=== PATIENT | female | born 2000 | race Caucasian/White ===

== ENCOUNTER 2025-04-22 03:08 | Emergency (ER) | payer BC, SELFPAY ==
[2025-04-22] VITALS (20 sets, daily range): BP systolic 111–130; BP diastolic 63–98; PULSE 59–95; RESP 9–22; TEMP 36.6; O2SAT 95–100
--- NOTE | ~2025-04-22 | US_ITS ---
EXAMINATION: US pelvic complete w TV INDICATION: Right lower quadrant pain Comparison:Ultrasound dated 11/20/2024 TECHNIQUE: Multiple transabdominal and endovaginal sonographic images of the pelvis performed. FINDINGS: The uterus measures 8.8 x 2.9 x 5.4 cm. The endometrial complex measures 4.5 mm. The right ovary measures 3.7 x 1.3 x 1.6 cm and the left ovary measures 4.7 x 2 x 2 cm. There are sm all follicles in each ovary. Normal doppler signal in both ovaries. There is no free fluid in the pelvis. There are no abnormal masses seen on either side. IMPRESSION: 1. Unremarkable pelvic ultrasound. Reviewed, dictated and finalized at location A.
--- NOTE | ~2025-04-22 | CT_ITS ---
EXAMINATION: CT abdomen pelvis w con DATE: 04/22/2025 06:43 INDICATION: Right lower quadrant pain TECHNIQUE: Computed tomography (CT) of the abdomen and pelvis was performed with 100 cc Omnipaque 350 intravenous contrast. The dose-length product was 1095.55 mGy-cm. Automated exposure control and ite rative reconstruction technique were employed. COMPARISON: Ultrasound dated 04/22/2025. FINDINGS: There is dependent atelectasis. Heart size normal. No significant pleural or pericardial ef fusion. There is a 3 mm distal right ureteral stone near the UVJ. Mild right hydronephrosis. There is delayed asymmetric right renal nephrogram. Nonobstructing left nephrolithiasis. No left ureteral sto ne or hydronephrosis. No abnormal pelvic masses or fluid collections. Normal appendix. IMPRESSION: 1. Distal right ureteral stone near the UPJ measuring 3 mm with mild hydronephrosis. 2: Nonobstructing left nephrolithiasis. Reviewed, dictated and finalized at location A. IMPRESSION: 1. Distal right ureteral stone near the UPJ measuring 3 mm with mild hydronephr osis. 2: Nonobstructing left nephrolithiasis.
--- OUTSIDE RECORDS SUMMARY | 2025-04-22 03:11 | XMS_ITS | Patient Health Record ---
Author Organization [facility] Address [address] [facility] [address] [place] [address] Care Team Providers Care Respiratory Therapy Technician Name Role Phone Simon OROZCO, Jesus Primary Care Provider UnavailDustin Schultz Unavailable [phone] Nilo Harding Unavailable [phone] Results Component Value Reference Range Notes Test Reviewed date:07/29/2024 11:18:57 AM Interpretation: Performing Lab: Notes/Report: Test urine NEG 0 - 0 UDT Reviewed date:07/29/2024 11:18:57 AM Interpretation: Performing Lab: Notes/Report: THC POS 0 - 50 ng/ml Cocaine N 0 - 300 ng/ml Amphetamine N 0 - 1000 ng/ml Buprenorphine (BUP) N 0 - 10 ng/ml Secobarbital (Bar) N 0 - 300 ng/ml Oxazepam (BZO) N 0 - 300 ng/ml 6-zvdefdqhpx-6,5-xppmudtf-1,3-diphenylpyrrolidine (GRACIE P) N 0 - 300 ng/ml Methamphetamine (MET) N 0 - 1000 ng/ml Methylenedioxymethamphetamine (MDMA) N 0 - 500 ng/ml Morphine (MOP 300/[id number]) N 0 - 300 ng/ml Methadone (MTD) N 0 - 300 ng/ml Phencyclidine (PCP) N 0 - 25 ng/ml Nortriptyline (TCA) N 0 - 1000 ng/ml Oxycodone N 0 - 300 ng/ml x N 0 - 300 ng/ml Reason For Referral No Information Medications Medication SIG (Take, Route, Frequency, Duration) Notes Start Date End Date Status traZODone HCl 50 MG 1 tablet at bedtime Oral Once a day; Duration: 30 days Active DULoxetine HCl 30 MG TAKE 1 CAPSULE BY MOUTH EVERY DAY; Duration: 90 Active Multivitamin Active ALESSIA 24 FE 1 MG-20 MCG (24)/75 MG (4) TABLET *Reorder from [employer] for eRx and Interaction Alerts* Active Trintellix 10 MG 1 tablet Orally Once a day; Duration: 30 days 07/26/2024 Active Trintellix 5 MG 1 tablet Orally Once a day; Duration: 7 days 07/26/2024 Active Social History Tobacco Use: Social History Observation Description Date Details (start date - stop date) Never Smoker NA - NA Sex Assigned At : Social History Observation Description Sex Assigned At Female Tobacco Control (Standard) Question Answer Notes Tobacco use: Nonsmoker AUDIT-C (Standard) Question Answer Notes Points 3 Interpretation Positive Did you have a drink contain ing alcohol in the past year? Yes How often did you have six o r more drinks on one occasion in the past year? Less than monthly (1 point) How many drinks did you have on a typical day when you were drinking in the past year? 3 or 4 drinks (1 point) How often did you have a dri nk containing alcohol in the past year? Monthly or less (1 point) Problems Problem Type SNOMED Code ICD Code Onset Dates Problem Status W/U Status Risk Notes Problem Insomnia disorder related to another mental disorder (98388166) Insomnia due to other mental disorder (F51.05) Active confirmed Problem Generalized anxiety disorder (52313372) Anxiety, generalized (F41.1) Active confirmed Problem Panic disorder (546052201) Panic disorder (F41.0) Active confirmed Problem Moderate recurrent major depression (54446234) Moderate recurrent major depression (F33.1) Active confirmed Problem Complex posttraumatic stress disorder (521422998) Complex posttraumatic stress disorder (F43.10) Active confirmed Vital Signs Height-cm 160.02 cm 07/26/2024 Weight-kg 93.08 kg 07/26/2024 Height 63 in 07/26/2024 Weight 205.2 lbs 07/26/2024 BMI 36.35 kg/m2 07/26/2024 Encounters [facility] [address] [address] 07/26/2024 Dustin Camara Anxiety, generalized F41.1 ; Fatigue, unspecified type R53.83 ; Complex posttraumatic stress disorder F43.10 ; Moderate recurrent major depression F33.1 ; Panic disorder F41.0 and Insomnia due to other mental disorder F51.05 [facility], [facility] [address] [place] [address] 09/06/2024 Dustin Camara [facility], [facility] [address] [place] [address] 09/09/2024 Dustin Camara [facility], [facility] [address] [place] [address] 09/10/2024 Dustin Camara [facility], [facility] [address] [place] [address] 06/14/2024 Nilo Harding [facility], [facility] [address] [place] [address] 08/26/2024 Dustin Camara Moderate recurrent major depression F33.1 [facility], [facility] [address] [place] [address] 08/26/2024 Dustin Camara Moderate recurrent major depression F33.1 [facility], [facility] [address] [place] [address] 08/26/2024 Dustin Camara [facility], [facility] [address] [place] [address] 08/29/2024 Dustin Camara Moderate recurrent major depression F33.1 [facility], [facility] [address] [place] [address] 09/01/2024 Dustin Camara [facility], [facility] [address] [place] [address] 09/06/2024 Dustin Camara Assessments Encounter Date Diagnosis (ICD Code) Assessment Notes Treatment Notes Treatment Clinical Notes Section Notes 07/26/2024 Fatigue, unspecified type (ICD-10 - R53.83) 1. Anxiety and Panic Disorder: - Continue trazodone for sleep as needed - Taper off duloxetine: decrease to 30 mg daily for two weeks, then discontinue - Initiate Trintellix: start at 5 mg daily for one week, then increase to 10 mg daily Plan: - Continue therapy with current counselor, including EMDR for complex PTSD 2. Depression: - Taper off duloxetine as mentioned above - Initiate Trintellix as mentioned above Plan: - Monitor response to Trintellix and adjust dosage as needed - Continue therapy with current counselor 3. Fatigue: Plan: - Order blood work: CBC, red blood count, hemoglobin, hematocrit, vitamin B12, folate, thyroid, lipid panel, iron, ferritin, electrolytes, and glucose - Monitor response to Trintellix and consider referral to sleep medicine if she experiences persistent fatigue 4. ARFID (Avoidant/Restr ictive Food Intake Disorder): Plan: - Continue exploring online resources and local counselors specializing in ARFID - Monitor nutritional status and consider referral to a logistics planning engineer if needed 5. Complex PTSD: Plan: - Continue EMDR therapy with current counselor - Monitor progress and adjust treatment plan as needed 6. Sleep disturbance: - Continue trazodone for sleep as needed Plan: - Monitor response to Trintellix and consider referral to sleep medicine if she continues to experience sleep disturbance 07/26/2024 Anxiety, generalized (ICD-10 - F41.1) 1. Anxiety and Panic Disorder: - Continue trazodone for sleep as needed - Taper off duloxetine: decrease to 30 mg daily for two weeks, then discontinue - Initiate Trintellix: start at 5 mg daily for one week, then increase to 10 mg daily Plan: - Continue therapy with current counselor, including EMDR for complex PTSD 2. Depression: - Taper off duloxetine as mentioned above - Initiate Trintellix as mentioned above Plan: - Monitor response to Trintellix and adjust dosage as needed - Continue therapy with current counselor 3. Fatigue: Plan: - Order blood work: CBC, red blood count, hemoglobin, hematocrit, vitamin B12, folate, thyroid, lipid panel, iron, ferritin, electrolytes, and glucose - Monitor response to Trintellix and consider referral to sleep medicine if she experiences persistent fatigue 4. ARFID (Avoidant/Restr ictive Food Intake Disorder): Plan: - Continue exploring online resources and local counselors specializing in ARFID - Monitor nutritional status and consider referral to a logistics planning engineer if needed 5. Complex PTSD: Plan: - Continue EMDR therapy with current counselor - Monitor progress and adjust treatment plan as needed 6. Sleep disturbance: - Continue trazodone for sleep as needed Plan: - Monitor response to Trintellix and consider referral to sleep medicine if she continues to experience sleep disturbance 08/26/2024 Moderate recurrent major depression (ICD-10 - F33.1) 08/26/2024 Moderate recurrent major depression (ICD-10 - F33.1) 08/29/2024 Moderate recurrent major depression (ICD-10 - F33.1) 07/26/2024 Complex posttraumatic stress disorder (ICD-10 - F43.10) counseling, just started EMDR 1. Anxiety and Panic Disorder: - Continue trazodone for sleep as needed - Taper off duloxetine: decrease to 30 mg daily for two weeks, then discontinue - Initiate Trintellix: start at 5 mg daily for one week, then increase to 10 mg daily Plan: - Continue therapy with current counselor, including EMDR for complex PTSD 2. Depression: - Taper off duloxetine as mentioned above - Initiate Trintellix as mentioned above Plan: - Monitor response to Trintellix and adjust dosage as needed - Continue therapy with current counselor 3. Fatigue: Plan: - Order blood work: CBC, red blood count, hemoglobin, hematocrit, vitamin B12, folate, thyroid, lipid panel, iron, ferritin, electrolytes, and glucose - Monitor response to Trintellix and consider referral to sleep medicine if she experiences persistent fatigue 4. ARFID (Avoidant/Restr ictive Food Intake Disorder): Plan: - Continue exploring online resources and local counselors specializing in ARFID - Monitor nutritional status and consider referral to a logistics planning engineer if needed 5. Complex PTSD: Plan: - Continue EMDR therapy with current counselor - Monitor progress and adjust treatment plan as needed 6. Sleep disturbance: - Continue trazodone for sleep as needed Plan: - Monitor response to Trintellix and consider referral to sleep medicine if she continues to experience sleep disturbance 07/26/2024 Moderate recurrent major depression (ICD-10 - F33.1) 1. Anxiety and Panic Disorder: - Continue trazodone for sleep as needed - Taper off duloxetine: decrease to 30 mg daily for two weeks, then discontinue - Initiate Trintellix: start at 5 mg daily for one week, then increase to 10 mg daily Plan: - Continue therapy with current counselor, including EMDR for complex PTSD 2. Depression: - Taper off duloxetine as mentioned above - Initiate Trintellix as mentioned above Plan: - Monitor response to Trintellix and adjust dosage as needed - Continue therapy with current counselor 3. Fatigue: Plan: - Order blood work: CBC, red blood count, hemoglobin, hematocrit, vitamin B12, folate, thyroid, lipid panel, iron, ferritin, electrolytes, and glucose - Monitor response to Trintellix and consider referral to sleep medicine if she experiences persistent fatigue 4. ARFID (Avoidant/Restr ictive Food Intake Disorder): Plan: - Continue exploring online resources and local counselors specializing in ARFID - Monitor nutritional status and consider referral to a logistics planning engineer if needed 5. Complex PTSD: Plan: - Continue EMDR therapy with current counselor - Monitor progress and adjust treatment plan as needed 6. Sleep disturbance: - Continue trazodone for sleep as needed Plan: - Monitor response to Trintellix and consider referral to sleep medicine if she continues to experience sleep disturbance 07/26/2024 Panic disorder (ICD-10 - F41.0) 1. Anxiety and Panic Disorder: - Continue trazodone for sleep as needed - Taper off duloxetine: decrease to 30 mg daily for two weeks, then discontinue - Initiate Trintellix: start at 5 mg daily for one week, then increase to 10 mg daily Plan: - Continue therapy with current counselor, including EMDR for complex PTSD 2. Depression: - Taper off duloxetine as mentioned above - Initiate Trintellix as mentioned above Plan: - Monitor response to Trintellix and adjust dosage as needed - Continue therapy with current counselor 3. Fatigue: Plan: - Order blood work: CBC, red blood count, hemoglobin, hematocrit, vitamin B12, folate, thyroid, lipid panel, iron, ferritin, electrolytes, and glucose - Monitor response to Trintellix and consider referral to sleep medicine if she experiences persistent fatigue 4. ARFID (Avoidant/Restr ictive Food Intake Disorder): Plan: - Continue exploring online resources and local counselors specializing in ARFID - Monitor nutritional status and consider referral to a logistics planning engineer if needed 5. Complex PTSD: Plan: - Continue EMDR therapy with current counselor - Monitor progress and adjust treatment plan as needed 6. Sleep disturbance: - Continue trazodone for sleep as needed Plan: - Monitor response to Trintellix and consider referral to sleep medicine if she continues to experience sleep disturbance 07/26/2024 Insomnia due to other mental disorder (ICD-10 - F51.05) 1. Anxiety and Panic Disorder: - Continue trazodone for sleep as needed - Taper off duloxetine: decrease to 30 mg daily for two weeks, then discontinue - Initiate Trintellix: start at 5 mg daily for one week, then increase to 10 mg daily Plan: - Continue therapy with current counselor, including EMDR for complex PTSD 2. Depression: - Taper off duloxetine as mentioned above - Initiate Trintellix as mentioned above Plan: - Monitor response to Trintellix and adjust dosage as needed - Continue therapy with current counselor 3. Fatigue: Plan: - Order blood work: CBC, red blood count, hemoglobin, hematocrit, vitamin B12, folate, thyroid, lipid panel, iron, ferritin, electrolytes, and glucose - Monitor response to Trintellix and consider referral to sleep medicine if she experiences persistent fatigue 4. ARFID (Avoidant/Restr ictive Food Intake Disorder): Plan: - Continue exploring online resources and local counselors specializing in ARFID - Monitor nutritional status and consider referral to a logistics planning engineer if needed 5. Complex PTSD: Plan: - Continue EMDR therapy with current counselor - Monitor progress and adjust treatment plan as needed 6. Sleep disturbance: - Continue trazodone for sleep as needed Plan: - Monitor response to Trintellix and consider referral to sleep medicine if she continues to experience sleep disturbance Plan Of Treatment Future Test Test Name Order Date IRON, TIBC AND FERRITIN PANEL (5616) TSH+FREE T4 (75300) 07/26/2024 LIPID PANEL (REFL) (92941) 07/26/2024 COMPREHENSIVE METABOLIC PANEL (23458) CBC (H/H, RBC, INDICES, WBC, PLT) (1759) 07/26/2024 HEMOGLOBIN A1c (496) 07/26/2024 VITAMIN B12/FOLATE, SERUM PANEL (7065) 1 09/25/2023 Insurance Providers Payer Name Payer Address Payer Phone Subscriber Number Group Number Insured Name Patient Relationship to Insured Coverage Start Date Coverage End Date [facility] [address] [place] [address] [id number] KALYN MANNING Self - patient is the insured Medical (General) History Medical History History ICD Code Past Psychiatric History: Anxiety Disord er abdominal aortic aneurysm: No atrial fibrillation: No chronic fatigue syndrome: No essential tremor: No hyperlipidemia: No hypertension: No Parkinson's disease: No restless leg syndrome: No stroke: No subdural hematoma: No type 1 diabetes mellitus: No type 2 diabetes mellitus: No vitamin B12 deficiency: No vitamin D deficiency: No
--- OUTSIDE RECORDS SUMMARY | 2025-04-22 03:11 | XMS_ITS | Clinical Summary ---
Author Organization [facility] Address [address] [address] Care Team Providers Care Sawmill Supervisor Name Role Phone Provider, Unknown Primary Care Provider Unavaila ble Allergies Active Allergy Reactions Criticality Noted Date Comments Clindamycin Anaphylaxis 06/22/2020 Medications SERTRALINE HCL PO Take by mouth. Activ e traZODone (DESYREL) 100 MG Tablet Take 100 mg by mouth nightly. Active Norethin Irving-Eth Estrad-FE (LOESTRIN 24 FE PO) Take by mouth. Activ e DOXYCYCLINE HYCLATE PO Take by mouth. 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 Gender Identity Not on file Sexual Orientation Not on file Last Filed Vital Signs Vital Sign Reading Time Taken Comments Blood Pressure 118/78 07/02/2021 12:56 PM CDT Pulse 102 07/02/2021 12:56 PM CDT Temperature 37.3 C (99.1 F) 07/02/2021 12:56 PM CDT Respiratory Rate 16 07/02/2021 12:56 PM CDT Oxygen Saturation 98% 07/02/2021 12:56 PM CDT Inhaled Oxygen Concentration - - Weight 90.7 kg (200 lb) 07/02/2021 12:56 PM CDT Height 160 cm (5' 3) 07/02/2021 12:56 PM CDT Body Mass Index 35.43 07/02/2021 12:56 PM CDT Plan of Treatment Health Maintenance Due Date Last Done Comments Hepatitis C Virus (HCV) Screening 1999 Pap Smear 11/08/2020 SARS-COV-2 Immunization ( season) 2024 03/11/2021, 02/22/2021, 01/25/2021 Influenza Immunization (#1) 2025 Respiratory Syncytial Virus (RSV) Immunization (Adult) (1 - 1-dose 75+ series) 11/08/2074 Hepatitis B Immunization Completed 001, 03/01/2000, 01/05/2000 DTaP/Tdap/Td Immunization Discontinued 2010, 01/04/2005, 11/10/2000, Additional history exists TdaP Immunization Completed 04/01/2011 Human Papillomavirus (HPV) Immunization Completed 04/21/2014, 06/08/2013, 05/22/2012 Meningococcal Immunization (ACWY) Completed 02/19/2016 Pneumococcal Immunization Combined Aged Out No longer eligible based on patient's age to complete this topic Rotavirus Immunization Aged Out No lo nger eligible based on patient's age to complete this topic Insurance [facility] Care Teams Sawmill Supervisor Relationship Specialty Start Date End Date Provider, Unknown UNKNOWN PCP - General 08/23/18
[2025-04-22 03:36] LABS: Hematocrit 41.4 % (37.0-47.0); Hemoglobin 14.1 g/dL (12.0-15.0); Immature Granulocyte Percent A 0.2 % (0-0.5); Lymphocytes Absolute Auto 5.50 K/mm3 (0.9-3.2); Mean Corpuscular HGB Conc 34.1 g/dl (32-36); Mean Corpuscular Hemoglobin 27.8 pg (26-34); Mean Corpuscular Volume 81.7 fl (80-100); Nucleated Red Blood Cells Absolute Auto 0.000 K/mm3 (0.0-0.012); Nucleated Red Blood Cells Perc 0.0 % (0.0-0.2); Platelet Count Result 251 k/mm3 (150-375); Red Blood Count 5.07 M/mm3 (4.2-5.4); White Blood Count 10.7 K/mm3 (4.5-10.0)
--- NOTE | 2025-04-22 03:42 | ED_ITS ---
HPI - Abdominal Pain General Chief Complaint: Abdominal Pain Stated Complaint: R lower abd pain Time Seen by Provider: 04/22/25 03:20 History of Present Illness HPI narrative: 24-year-old female presenting to the emergency department sudden-onset right lower quadrant and right flank abdominal pain that woke up from sleep. States the pain is 10/10. Patient is very tearful and crying in triage. Denies any traumatic injuries. Was otherwise in her normal state of health. States she has had ovarian cysts in cyst ruptured before and this feels similar but does not usually radiate toward her back. No history of kidney stones. 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 Still has her appendix and gallbladder. No fever chills. No vomiting, diarrhea, constipation or urinary complaints. No issues last night and went to bed with no pain. Related Data Home Medications ?Medication ?Instructions ?Recorded ?Confirmed ?Last Taken ?Type etonogestrel 68 mg subdermal 1 implant subdermal ONCE 12/05/24 12/05/24 Unknown History implant (Nexplanon) Allergies Allergy/AdvReac Type Severity Reaction Status Date / Time clindamycin Allergy Unknown throat Verified 04/22/25 03:09 closing Review of Systems 2 Review of Systems: As [facility] Past Medical History Medical History Erythema intertrigo Ulcer of buttock Sore throat Acne Need for Tdap vaccination BMI 35.0-35.9,adult BMI over 35 Insomnia BMI 36.0-36.9,adult Pre-syncope Abnormal TSH Surgical History Surgical History History of genitourinary surgery as infant - stomach/esophageal repair S/P foot surgery Family History Family History Grandparent Hypertension Family history of lung cancer Family history of type 2 diabetes mellitus Father No problems noted. Mother Depression Sibling ADHD Social History Social History Smoking status: Never smoker Second hand tobacco smoke exposure: No Alcohol intake: current Alcohol use details: 3 month Substance use: current Substance use type: marijuana Other substance usage details: daily Do You Feel Safe in your Home?: Yes Lack of Transportation: No Lack of Food: Never True Current Housing: I Have Housing Concerned About Future Housing: No Difficulty Paying Gas/Electric Bills: No Difficulty Paying for Meds: No Currently Unemployed: No Education: Bachelor's Degree Difficulty w/ Childcare or Family Care: No Living arrangements: with family Additional living arrangements comments: single Occupation/Education: student 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 Mucous membranes moist. NECK: Supple. CHEST: [Clear to auscultation. No respiratory distress.] HEART: [Regular rate and rhythm]. No murmur heard. [Normal peripheral pulses.] ABDOMEN: [Soft, nondistended], reproducible tenderness in the right lower quadrant, [No rigidity or guarding] EXTREMITIES: Normal range of motion. [No edema.] SKIN: Warm, dry, no rash. NEURO: [No focal deficits]. Alert and oriented [x3.] PSYCH: Tearful Course Vital Signs Vital signs: Vital Signs Temperature 36.6 C 04/22/25 03:15 Pulse Rate 76 04/22/25 03:15 Respiratory Rate 20 04/22/25 03:15 Blood Pressure 128/98 H 04/22/25 03:15 Pulse Oximetry 99 04/22/25 03:15 Oxygen Delivery Room Air 04/22/25 03:15 Temperature 36.6 C 04/22/25 03:15 Pulse Rate 76 04/22/25 03:15 Respiratory Rate 20 04/22/25 03:15 Blood Pressure 128/98 H 04/22/25 03:15 Pulse Oximetry 99 04/22/25 03:15 Oxygen Delivery Room Air 04/22/25 03:15 MDM - Abdominal Pain MDM Narrative Medical decision making narrative: 24-year-old female presenting to the emergency department sudden-onset right lower quadrant and right flank abdominal pain that woke up from sleep. States the pain is 10/10. Patient is very tearful and crying in triage. Denies any traumatic injuries. Was otherwise in her normal state of health. States she has had ovarian cysts in cyst ruptured before and this feels similar but does not usually radiate toward her back. No history of kidney stones. 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 Still has her appendix and gallbladder. No fever chills. No vomiting, diarrhea, constipation or urinary complaints. No issues last night and went to bed with no pain. Patient is not in any physical distress but is uncomfortable in tearful. Has pain reproduced been right lower quadrant with palpation. Normal vital signs with any tachycardia, fever, hypoxia. Given the sudden onset nature of the pain that woke up from sleep on likely infectious in nature such as appendicitis and more potential consistent with ovarian cyst or torsion. Other potential causes such as renal colic or kidney stone possible. Broad workup initiated including CBC, CMP, urinalysis and ultrasound of the pelvis was obtained. She was given Dilaudid, Zofran and fluids for symptom control and re-evaluated. Patient's laboratory studies show a slight leukocytosis of 10.7, no hemoglobin concerns or and platelet concerns. Chemistry panel is normal. Normal GFR but creatinine mildly elevated 1.01. Normal glucose and normal LFTs. Normal lipase. Urinalysis has 2+ bacteria but somewhat contaminated with squamous cells. Patient denies any urinary complaints. Pelvic ultrasound is unremarkable. At this time patient was re-evaluated and still in significant pain. She was given additional Dilaudid with good analgesia. Discussed with family next steps to further evaluate and we will obtain a CT abdomen pelvis with contrast to evaluate for intra-abdominal pathology such as appendicitis or kidney stone/pyelonephritis given the urinary findings. CT scan shows a distal UPJ stone 3 mm with mild hydro. Patient's pain is under control at this time. We discussed next steps including initiation of Flomax and Toradol as well as an antibiotic for the mildly abnormal urinary findings. Patient comfortable with the plan and given return precautions and discharge instructions with Urology follow-up. Medical Records Attestation: I reviewed the patient's medical records. Lab Data Attestation: I reviewed the patient's lab results. 04/22/25 03:25 04/22/25 03:25 Labs: Lab Results 04/22/25 04/22/25 04/22/25 Range/Units 03:09 03:25 03:36 WBC 10.7 H (4.5-10.0) K/mm3 RBC 5.07 (4.2-5.4) M/mm3 Hgb 14.1 (12.0-15.0) g/dL Hct 41.4 (37.0-47.0) % MCV 81.7 (80-100) fl MCH 27.8 (26-34) pg MCHC 34.1 (32-36) g/dl RDW 13.4 (11.5-14.5) % Plt Count 251 (150-375) k/mm3 MPV 9.4 (7.4-10.4) fl Immature Gran % (Auto) 0.2 (0-0.5) % Neut % (Auto) 36.0 L (45.5-73.1) % Lymph % (Auto) 51.4 H (18.3-44.2) % [place] % (Auto) 8.2 (2.6-8.5) % Eos % (Auto) 3.5 (0-4.4) % Baso % (Auto) 0.7 (0.2-1.2) % Lymph # (Auto) 5.50 H (0.9-3.2) K/mm3 [place] # (Auto) 0.9 H (0.1-0.6) K/mm3 Eos # (Auto) 0.4 H (0-0.3) K/mm3 Baso # (Auto) 0.1 (0.0-0.1) K/mm3 Abs Immat Gran (auto) 0.02 (0.00-0.031) K/mm3 Absolute Neuts (auto) 3.9 (1.3-6.7) K/mm3 Absolute Nucleated RBC 0.000 (0.0-0.012) K/mm3 Nucleated RBC % 0.0 (0.0-0.2) % Sodium 139 (137-145) mmol/L Potassium 3.9 (3.4-5.0) mmol/L Chloride 107 (98-107) mmol/L Carbon Dioxide 20 L (22-30) mmol/L Anion Gap 12 (4-12) mmol/L BUN 10 (7-17) mg/dL Creatinine 1.01 H (0.7-1.0) mg/dL Estim Creat Clear Calc 83 ml/min Estimated GFR > 60 (59 - ) Glucose 109 (65-110) mg/dL Calcium 9.5 (8.4-10.2) mg/dL Total Bilirubin 0.5 (0.2-1.3) mg/dL AST 28 (14-36) U/L ALT 23 (6-35) U/L Alkaline Phosphatase 89 (38-126) U/L Total Protein 8.0 (6.3-8.2) g/dL Albumin 4.6 (3.5-5.1) g/dL Lipase 111 (23-300) U/L Urine Color Yellow (Yellow) Urine Appearance Clear (Clear) Urine pH 6.0 (5.0-9.0) Ur Specific [place] 1.016 (1.001-1.035) Urine Protein 1+ H (Negative) mg/dL Urine Glucose (UA) Negative (Negative) mg/dL Urine Ketones Negative (Negative) mg/dL Ur Blood (Man) 1+ H (Negative) Urine Nitrate Negative (Negative) Urine Bilirubin Negative (Negative) Urine Urobilinogen 0.2 (<2.0) mg/dL Leukocyte Esterase Rfl 1+ H (Negative) TARA/UL Urine RBC 11-20 H (0-2) /hpf Urine WBC 11-20 H (0-3) /hpf Ur Squamous Epith Cells Few (Few) /hpf Urine Bacteria 2+ H /hpf Urine Casts 3-5 POC Urine HCG, Qual Negative (Negative) Imaging Data Attestation: I personally reviewed and interpreted this imaging study as follows: My impression: Impressions Pelvic/Transvag US 04/22/25 06:24 IMPRESSION: 1. Unremarkable pelvic ultrasound. Abdomen/Pelvis CT 04/22/25 06:55 IMPRESSION: 1. Distal right ureteral stone near the UPJ measuring 3 mm with mild hydronephrosis. 2: Nonobstructing left nephrolithiasis. Impressions Pelvic/Transvag US 04/22/25 06:24 IMPRESSION: 1. Unremarkable pelvic ultrasound. Radiologist's impression: ITS Impressions Pelvic/Transvag US 04/22/25 06:24 IMPRESSION: 1. Unremarkable pelvic ultrasound. Abdomen/Pelvis CT 04/22/25 06:55 IMPRESSION: 1. Distal right ureteral stone near the UPJ measuring 3 mm with mild hydronephrosis. 2: Nonobstructing left nephrolithiasis. Discharge Plan Discharge Clinical Impression: Abdominal pain, acute, right lower quadrant, Obstruction of right ureteropelvic junction due to stone Patient Disposition: Still a Patient Condition: Stable Instructions: Antibiotic Form, Kidney Stones (ED), How to Strain Your Urine (ED), Flank Pain (ED) Additional Instructions: You have a 3 mm stone in the right ureteropelvic junction area which is causing her pain. We will send you home with medications to help dilate the urinary stream, controlled the pain, treat the mild signs of infection. Return with any emergent concerns such as inability to urinate, intractable pain, intractable nausea, fevers or any other concerns. Follow-up with your primary care provider and urologist and return with any concerns at any time. Patient Language: Palestinian Prescriptions: New acetaminophen [Tylenol Extra Strength] 500 mg tablet 1,000 mg PO TID PRN (Reason: pain) Qty: 30 0RF ketorolac 10 mg tablet 10 mg PO Q8H PRN (Reason: pain) 5 Days Qty: 20 0RF Rx Instructions: maximum total duration of 5 days from all oral, intranasal, or parenteral formulations tamsulosin [Flomax] 0.4 mg capsule 0.4 mg PO DAILY Qty: 20 0RF cephalexin 500 mg capsule 500 mg PO Q12H 5 Days Qty: 10 0RF No Action Nexplanon 68 mg implant 1 implant subdermal ONCE Rx Instructions: as a single dose duloxetine 60 mg capsule,delayed release(DR/EC) See Rx Instructions .ROUTE .COMPLEX Qty: 90 1RF Dose Instruction: TAKE 1 CAPSULE BY MOUTH EVERY DAY Rx Instructions: TAKE 1 CAPSULE BY MOUTH EVERY DAY trazodone 50 mg tablet 50 mg PO QHS PRN (Reason: insomnia) Qty: 90 2RF Follow-up/Referrals: Lupillo Bermudez MD [Physician] - 3 Days (Right UPJ stone) PHYSICIAN NOT ON STAFF,NONSTAFF [Non-Staff] -
[2025-04-22 03:47] LABS: Add Urine Microscopic? YES; Appearance Urine Clear (Clear); Glucose Urine UA Negative (Negative); Leukocyte Esterase Ur 1+ LEU/UL (Negative); Nitrate Urine Negative (Negative); Specific Grav Ur 1.016 (1.001-1.035)
[2025-04-22 03:53] LABS: Alanine Aminotransferase 23 U/L (6-35); Albumin Level 4.6 g/dL (3.5-5.1); Alkaline Phosphatase 89 U/L (38-126); Anion Gap 12 mmol/L (4-12); Aspartate Amino Transferase 28 U/L (14-36); Bilirubin,Total 0.5 mg/dL (0.2-1.3); Blood Urea Nitrogen 10 mg/dL (7-17); Calcium 9.5 mg/dL (8.4-10.2); Carbon Dioxide 20 mmol/L (22-30); Chloride 107 mmol/L (98-107); Estimated CRCL calculation 83 ml/min; Estimated Glomerular Filt Rate > 60; Glucose 109 mg/dL (65-110); Lipase 111 U/L (23-300); Potassium 3.9 mmol/L (3.4-5.0); Sodium 139 mmol/L (137-145); Total Protein 8.0 g/dL (6.3-8.2)
[2025-04-22 03:57] LABS: BEDSIDEPREGUCG Negative (Negative)
[2025-04-22] MEDS: HYDROmorphone HCL INJ (*CRX) 2 MG/ML VIAL 0.5 MG IV PUSH ×2 (04:01→06:12)
[2025-04-22] MEDS: LACTATED RINGERS 1,000 ML 999 ML IV CONT (04:03)
[2025-04-22] MEDS: ONDANSETRON INJ 4 MG/2 ML VIAL IV PUSH (04:03)
--- OUTSIDE RECORDS SUMMARY | 2025-04-22 04:25 | XMS_ITS | Clinical Summary ---
Author Organization [facility] Address [address] [place] [address] Care Team Providers Care Senior Accounts Payable Clerk Name Role Phone Provider, Unknown Primary Care [...] on file Legal Sex Female 2:48 AM [employer] Gender Identity Not on file Sexual Orientation [...] patient's age to complete this topic Insurance [facility] Care Teams Senior Accounts Payable Clerk Relationship Specialty Start Date End Date Provider, Unknown UNKNOWN PCP - General 08/23/18
--- NOTE | 2025-04-22 04:43 | PC.NURSE ---
US at bedside.
--- NOTE | 2025-04-22 05:07 | PC.NURSE ---
Pt taken to US in W/C
--- NOTE | 2025-04-22 05:23 | PC.NURSE ---
Pt returned from US
[2025-04-22] MEDS: TAMSULOSIN HCL 0.4 MG CAPSULE PO (07:27)
[2025-04-22] MEDS: CEPHALEXIN 500 MG CAPSULE PO (07:27)
== END 2025-04-22 07:28 | disposition home or self-care (01) ==
PROVIDERS: Emergency Provider Student in an Organized Health Care Education/Training Program; PCP Family Medicine
DX: N20.1 Calculus of ureter (principal)
CPT/HCPCS: 36415; 74177; 76830; 76856; 80053; 81001; 81025; 83690; 85025; 87086; 96361; 96374; 96375; 96376; 99284; A9270; J1171; J2405; J7120; Q9967